=== PATIENT | male | born 1945 | race Caucasian/White ===

== ENCOUNTER 2017-02-21 00:39 | Emergency (ER) | payer MEDICARE, BC ==
[~2017-02-21] VITALS: Ht 180.3 cm; Wt 71.0 kg
[2017-02-21 01:15] VITALS: BP 125/72
[2017-02-21] MEDS ORDERED: IBUPROFEN 400MG TABLET PO ONE (01:15)
[2017-02-21] MEDS ORDERED: ACETAMINOPHEN 325MG TABLET PO ONE (01:45)
== END 2017-02-21 03:15 | disposition home or self-care (01) ==
LOC: ER 00:39
DX: S82.045A Nondisplaced comminuted fracture of left patella, initial encounter for closed fracture (principal); S83.92XA Sprain of unspecified site of left knee, initial encounter; S02.5XXB Fracture of tooth (traumatic), initial encounter for open fracture; S60.221A Contusion of right hand, initial encounter; Z95.2 Presence of prosthetic heart valve; Z95.5 Presence of coronary angioplasty implant and graft; W01.0XXA Fall on same level from slipping, tripping and stumbling without subsequent striking against object, initial encounter; Y93.89 Activity, other specified; Y92.481 Parking lot as the place of occurrence of the external cause
CPT/HCPCS: 73562; 99284; L1830